=== PATIENT | male | born 1965 | race Caucasian/White ===

== ENCOUNTER → 2016-07-12 | Outpatient (CLI) | payer OTHER ==
[2016-07-12 08:31] LABS: CHLORIDE,CL 107 mmol/L (98-110); SODIUM,NA 139 mmol/L (136-146)
== END ==
LOC: MW.CHFP 07:43
PROVIDERS: ATTEND Student in an Organized Health Care Education/Training Program
DX: I10 Essential (primary) hypertension (principal); E11.9 Type 2 diabetes mellitus without complications; E78.00 Pure hypercholesterolemia, unspecified; E78.1 Pure hyperglyceridemia; E78.5 Hyperlipidemia, unspecified; R80.9 Proteinuria, unspecified
CPT/HCPCS: 36415; 80053; 80061; 82044; 83036

== ENCOUNTER → 2016-08-18 | Outpatient (CLI) | payer OTHER ==
[2016-08-18 08:56] LABS: CHLORIDE,CL 106 mmol/L (98-110); SODIUM,NA 140 mmol/L (136-146)
== END ==
LOC: MW.CHFP 08:19
PROVIDERS: ATTEND Student in an Organized Health Care Education/Training Program
DX: R74.0 Nonspecific elevation of levels of transaminase and lactic acid dehydrogenase [LDH] (principal)
CPT/HCPCS: 36415; 80053

== ENCOUNTER 2018-05-23 09:29 | Day surgery (SDC) | payer BC ==
[~2018-05-23 09:29] MED LIST: Lactated Ringers 1,000 ML IV SCH; Sodium Chloride 0.9% 10 ML Syringe FLUSH PRN; Sodium Chloride 0.9% 2.5 ML Syringe FLUSH PRN
--- NOTE | 2018-05-23 10:38 | PCM.PREANE ---
Preanesthetic Assessment - Anesthesia/Transfusion/Family Hx Anesthesia History: Prior Anesthesia Without Reaction Family History of Anesthesia Reaction: No Transfusion History: No Prior Transfusion(s) - Review of Systems General: No Symptoms Pulmonary: No Symptoms Cardiovascular: No Symptoms Gastrointestinal: No Symptoms Neurological: No Symptoms Other: Reports: None - Physical Assessment NPO Status Date: 05/22/18 Height: 6 ft Weight: 111.13 kg ASA Class: 2 Mental Status: Alert & Oriented x3 Airway Class: Mallampati = 2 Dentition: Reports: Normal Dentition ROM/Head Extension: Full Lungs: Clear to Auscultation, Normal Respiratory Effort Cardiovascular: Regular Rate, Regular Rhythm - Lab Values: Laboratory Last Values POC Glucose 82 mg/dL (60-110) 05/23/18 10:18 - Allergies Allergies/Adverse Reactions: Allergies Allergy/AdvReac Type Severity Reaction Status Date / Time amoxicillin Allergy Itching Verified 05/17/18 13:55 - Blood Blood Available: No - Anesthesia Plan Pre-Op Medication Ordered: None - Acknowledgements Anesthesia Type Planned: General Anesthesia, MAC Pt an Appropriate Candidate for the Planned Anesthesia: Yes Alternatives and Risks of Anesthesia Discussed w Pt/Guardian: Yes Pt/Guardian Understands and Agrees with Anesthesia Plan: Yes Additional Comments: PMH: anxiety, dm2, htn, gerd PLAN: mac/tiva PreAnesthesia Questionnaire HEENT History: Reports: Allergic Rhinitis Cardiovascular History: Reports: High Cholesterol, Hypertension Gastrointestinal History: Reports: GERD Genitourinary History: Reports: None Musculoskeletal History: Reports: Fracture Neurological History: Reports: None Psychiatric History: Reports: Anxiety Endocrine/Metabolic History: Reports: Diabetes, Type II, Obesity/BMI 30+ Hematologic History: Reports: None Immunologic History: Reports: None Oncologic (Cancer) History: Reports: None Dermatologic History: Reports: None - Past Surgical History Head Surgeries/Procedures: Reports: None HEENT Surgical History: Reports: Tonsillectomy Male Surgical History: Reports: Vasectomy Other Musculoskeletal Surgeries/Procedures:: surgical tx for fx rt wrist - SUBSTANCE USE Smoking Status *Q: Never Smoker - HOME MEDS Home Medications: Home Meds Aspirin [Adult Aspirin] 81 mg PO DAILY 05/17/18 [History] Canagliflozin/Metformin HCl [Invokamet 150-1,000 mg Tablet] 1 tab PO BID [History] Fenofibrate 160 mg PO DAILY 05/17/18 [History] Fluticasone Propionate [Flonase Allergy Relief] 2 spray NASBOTH BID 05/17/18 [ History] Lisinopril 10 mg PO DAILY 05/17/18 [History] Montelukast Sodium 10 mg PO DAILY 05/17/18 [History] Pantoprazole Sodium [Protonix] 20 mg PO DAILY 05/17/18 [History] Rosuvastatin Calcium 20 mg PO DAILY 05/17/18 [History] Ubidecarenone [Coq-10] 100 mg PO DAILY 05/17/18 [History] - CURRENT (IN HOUSE) MEDS Current Meds: Current Medications Lactated Ringer's (Ringers, Lactated) 1,000 mls @ 125 mls/hr IV ASDIRECTED JAYDA Sodium Chloride (Saline Flush) 10 ml FLUSH ASDIRECTED PRN PRN Reason: Keep Vein Open Sodium Chloride (Saline Flush) 2.5 ml FLUSH ASDIRECTED PRN PRN Reason: Keep Vein Open Sodium Chloride (Saline Flush) 10 ml FLUSH ASDIRECTED PRN PRN Reason: Keep Vein Open Sodium Chloride (Saline Flush) 2.5 ml FLUSH ASDIRECTED PRN PRN Reason: Keep Vein Open
[2018-05-23] MEDS ORDERED: Midazolam 1 MG/ML 2 ML SDV ONE (11:15)
[2018-05-23] MEDS ORDERED: fentaNYL 100 MCG/2 ML SDV ONE (11:15)
[2018-05-23] MEDS ORDERED: Propofol 200 MG/20 ML SDV ONE (11:15)
--- NOTE | 2018-05-23 11:54 | PCM.OPNOTE ---
- General Post-Op/Procedure Note Date of Surgery/Procedure: 05/23/18 Operative Procedure(s): Screening colonoscopy Findings: 1 polyp in the sigmoid colon Pre Op Diagnosis: Screening colonoscopy Post-Op Diagnosis: polyp in the sigmoid colon Anesthesia Technique: MAC Primary Surgeon: Michelle Patterson EBL in mLs: 0 Complications: None Condition: Good
--- NOTE | 2018-05-24 12:06 | OR ---
SURGEON: VANCE MCKINNEY MD DATE OF PROCEDURE: 05/23/2018 PREOPERATIVE DIAGNOSIS: Screening colonoscopy. POSTOPERATIVE DIAGNOSIS: Sigmoid colon polyp. PROCEDURE PERFORMED: Screening colonoscopy. ANESTHESIA: MAC. INSTRUMENT USED: Olympus colonoscope. EXTENT OF EXAM: To the cecum. PREPARATION: Fair prep. LIMITATIONS: None. INDICATION FOR EXAMINATION: The patient is a 52-year-old male who presents for screening colonoscopy. I explained the procedure, expected perioperative course, and risks including bleeding, infection, or damage to surrounding structures including perforation. The patient verbalized understanding and wishes to proceed. PROCEDURE IN DETAIL: The patient was brought to the endoscopy suite and placed in the left lateral decubitus position. A time-out was completed verifying the patient's name, age, date of , allergies, and procedure to be performed. Monitored anesthesia care was induced and continuous oxygen was provided via nasal cannula throughout the procedure. After adequate sedation was achieved, a digital rectal exam was performed. This exam was within normal limits. A well lubricated colonoscope was inserted in the rectum and advanced under direct visualization to the level of the cecum. The cecum was identified by both visual and anatomic landmarks. A photograph was taken of the cecal cap; however, I was unable to retroflex the scope within the cecum. The scope was then fully withdrawn while examining the color, texture, anatomy, and integrity of the mucosa from the cecum to the anal canal. The patient had a large amount of liquid stool in the colon and required a large amount of irrigation. Despite this, I was able to adequately assess the colonic mucosa. The patient was found to have one small polyp within the sigmoid colon and this was removed using a cold biopsy forceps. The scope was then brought into the rectum and retroflexed to allow visualization of the anal canal opening. This appeared normal and a photograph was taken. The scope was then straightened out and fully withdrawn. The cecum to anus time was 14 minutes. The patient tolerated the procedure well and was taken to PACU in stable condition. ENDOSCOPIC DIAGNOSIS: Sigmoid colon polyp. RECOMMENDATIONS: Follow up in clinic in 2 weeks. ALEJANDRO MOLINA /[id number]
== END 2018-05-23 12:35 | disposition home or self-care (01) ==
LOC: MW.SDS 09:29
PROVIDERS: ATTEND Surgery
DX: Z12.11 Encounter for screening for malignant neoplasm of colon (principal); K63.5 Polyp of colon; I10 Essential (primary) hypertension; E11.9 Type 2 diabetes mellitus without complications; E66.9 Obesity, unspecified; Z68.33 Body mass index [BMI] 33.0-33.9, adult; F41.9 Anxiety disorder, unspecified; E78.00 Pure hypercholesterolemia, unspecified; K21.9 Gastro-esophageal reflux disease without esophagitis; Z79.82 Long term (current) use of aspirin; Z79.84 Long term (current) use of oral hypoglycemic drugs; Z79.899 Other long term (current) drug therapy; Z80.0 Family history of malignant neoplasm of digestive organs; Z88.0 Allergy status to penicillin
CPT/HCPCS: 82962; 88305; J2250; J2704; J3010; J7120

== ENCOUNTER 2018-09-18 19:47 | Observation (INO) | payer BC, OTHER ==
[2018-09-18] MEDS ORDERED: Sodium Chloride 0.9% 10 ML Syringe FLUSH PRN (19:56)
[2018-09-18] MEDS ORDERED: Aspirin 81 MG Tab.Chew PO ONE (19:56)
[2018-09-18] MEDS ORDERED: Sodium Chloride 0.9% 2.5 ML Syringe FLUSH PRN (19:56)
[2018-09-18] MEDS ORDERED: Nitroglycerin 0.4 MG Tab.SL SL PRN (19:56)
--- NOTE | 2018-09-18 20:01 | EDM.PDOC ---
ED HPI GENERAL MEDICAL PROBLEM - General Chief Complaint: Chest Pain Stated Complaint: TIGHNESS IN CHEST AND PAIN IN BACK Time Seen by Provider: 09/18/18 19:48 - History of Present Illness INITIAL COMMENTS - FREE TEXT/NARRATIVE: HISTORY AND PHYSICAL: History of present illness: The patient is a 53-year-old male with a history of hypertension who presents with 2 weeks of episodic chest pressure and tightness that comes and goes but never wakes him from sleep. He says that there is nothing new or different this evening but he tried to call the clinic today and could not speak with his provider and he wants to get some answers about why this is occurring. He has a history of GERD and says that this feels differently. He has no nausea vomiting abdominal pain and leg pain or swelling and no shortness of breath and describes the discomfort as a tightness that is in his lower mid sternum and radiates to his back. He states compliance with his blood pressure medication and says he doesn't have high cholesterol and he has no significant family history and denies tobacco and drug use. He says he eats a poor diet mostly fast foods. He is having no issues with urination or bowel movements. He currently says that the discomfort is a 2/10 and he did not take anything for it and the highest it's ever been is a 3/10. It is not associated with activity. His last stress test was 12 years ago and was normal The patient tells me that he has been compliant with his medications for blood pressure but he has been checking at home and has been running on the high side. Review of systems: As per history of present illness and below otherwise all systems reviewed and negative. Past medical history: As per history of present illness and as reviewed below otherwise noncontributory. Surgical history: As per history of present illness and as reviewed below otherwise noncontributory. Social history: No reported history of drug or alcohol abuse. Family history: As per history of present illness and as reviewed below otherwise noncontributory. Physical exam: General: Well-developed well-nourished man who is nontoxic and vital signs were noted by me. He does have some telangiectasia on his cheeks HEENT: Atraumatic, normocephalic, , negative for conjunctival pallor or scleral icterus, mucous membranes moist, throat clear, neck supple, nontender, trachea midline. Lungs: Clear to auscultation, breath sounds equal bilaterally, chest nontender. No wheezing or stridor no work of breathing Heart: S1S2, regular, negative for clicks, rubs, or JVD. No overt murmurs are appreciated Abdomen: Soft, nondistended, nontender. Negative for masses or hepatosplenomegaly. Negative for costovertebral tenderness. Pelvis: Stable nontender. Genitourinary: Deferred. Rectal: Deferred. Extremities: Atraumatic, negative for cords or calf pain. Neurovascular unremarkable. No pedal edema or leg asymmetry Neuro: Awake, alert, oriented. Cranial nerves II through XII unremarkable. Cerebellum unremarkable. Motor and sensory unremarkable throughout. Exam nonfocal. Diagnostics: EKG chest x-ray CBC CMP INR troponin Therapeutics: IV O2 monitor aspirin and sublingual nitroglycerin Nitropaste After one sublingual nitroglycerin the patient's discomfort pressure is a 1/10 and he is declining further nitroglycerin sublingual. I will order a half an inch of nitro paste for him I discussed all testing results with the patient and he is agreeable for admission. He currently is only having that vague discomfort and pressure. 2052: I discussed this case with our hospitalist Dr. Aden who accepts for observation admission Impression: Chest pain Definitive disposition and diagnosis as appropriate pending reevaluation and review of above. Chest Pain Score (Numeric/FACES): 2 - Related Data Allergies Allergy/AdvReac Type Severity Reaction Status Date / Time amoxicillin Allergy Itching Verified 09/18/18 20:03 Home Meds: Home Meds Aspirin [Adult Aspirin] 81 mg PO DAILY 05/17/18 [History] Fenofibrate 160 mg PO DAILY 05/17/18 [History] Lisinopril 10 mg PO DAILY 05/17/18 [History] Montelukast Sodium 10 mg PO DAILY 05/17/18 [History] Pantoprazole Sodium [Protonix] 20 mg PO DAILY 05/17/18 [History] Rosuvastatin Calcium 20 mg PO DAILY 05/17/18 [History] Ubidecarenone [Coq-10] 100 mg PO DAILY 05/17/18 [History] Dapagliflozin/Metformin HCl [Xigduo Xr 5 mg-1,000 mg Tablet] 1 each PO BID 09/18 [History] Magnesium 400 mg PO DAILY 09/18/18 [History] Past Medical History HEENT History: Reports: Allergic Rhinitis Cardiovascular History: Reports: High Cholesterol, Hypertension Gastrointestinal History: Reports: GERD Genitourinary History: Reports: None Musculoskeletal History: Reports: Fracture Neurological History: Reports: None Psychiatric History: Reports: Anxiety Endocrine/Metabolic History: Reports: Diabetes, Type II, Obesity/BMI 30+ Hematologic History: Reports: None Immunologic History: Reports: None Oncologic (Cancer) History: Reports: None Dermatologic History: Reports: None - Past Surgical History Head Surgeries/Procedures: Reports: None HEENT Surgical History: Reports: Tonsillectomy Male Surgical History: Reports: Vasectomy Other Musculoskeletal Surgeries/Procedures:: surgical tx for fx rt wrist ED ROS GENERAL - Review of Systems Review Of Systems: ROS reveals no pertinent complaints other than HPI. ED EXAM, GENERAL - Physical Exam Exam: See Below (See dictation) Course - Vital Signs Last Recorded V/S: Last Vital Signs Temp 36.4 C 09/18/18 19:58 Pulse 89 09/18/18 19:58 Resp 12 09/18/18 19:58 BP 167/89 H 09/18/18 20:08 Pulse Ox 98 09/18/18 19:58 - Orders/Labs/Meds Orders: Active Orders 24 hr Category Date Time Status Patient Status [ADT] Stat ADT 09/18/18 20:55 Ordered Cardiac Monitoring [RC] . DIRECTED Care 09/18/18 19:56 Active EKG Documentation Completion [RC] STAT Care 09/18/18 19:56 Active Oxygen Therapy, ED [RC] ASDIRECTED Care 09/18/18 19:56 Active Pulse Oximetry [RC] ASDIRECTED Care 09/18/18 19:56 Active Nitroglycerin [Nitrostat] Med 09/18/18 19:56 Active 0.4 mg SL Q5M PRN Sodium Chloride 0.9% [Normal Saline] 1,000 ml Med 09/18/18 20:36 Active IV STAT Sodium Chloride 0.9% [Saline Flush] Med 09/18/18 19:56 Active 10 ml FLUSH ASDIRECTED PRN Sodium Chloride 0.9% [Saline Flush] Med 09/18/18 19:56 Active 2.5 ml FLUSH ASDIRECTED PRN Saline Lock Insert [OM.PC] Stat Oth 09/18/18 19:56 Ordered Medication Orders Sodium Chloride (Normal Saline) 1,000 mls @ 999 mls/hr IV STAT ONE Stop: 09/18/18 21:36 Nitroglycerin (Nitrostat) 0.4 mg SL Q5M PRN PRN Reason: Chest Pain Last Admin: 09/18/18 20:08 Dose: 0.4 mg Sodium Chloride (Saline Flush) 10 ml FLUSH ASDIRECTED PRN PRN Reason: Keep Vein Open Last Admin: 09/18/18 20:08 Dose: 10 ml Sodium Chloride (Saline Flush) 2.5 ml FLUSH ASDIRECTED PRN PRN Reason: Keep Vein Open Last Admin: 09/18/18 20:08 Dose: 2.5 ml Labs: Laboratory Tests 09/18/18 09/18/18 09/18/18 Range/Units 19:52 19:52 19:52 WBC 5.01 (4.0-11.0) K/uL RBC 5.16 (4.50-5.90) M/uL Hgb 16.0 (13.0-17.0) g/dL Hct 45.6 (38.0-50.0) % MCV 88.4 (80.0-98.0) fL MCH 31.0 (27.0-32.0) pg MCHC 35.1 (31.0-37.0) g/dL RDW Std Deviation 41.0 (28.0-62.0) fl RDW Coeff of [place] 13 (11.0-15.0) % Plt Count 170 (150-400) K/uL MPV 9.80 (7.40-12.00) fL Neut % (Auto) 41.5 L (48.0-80.0) % Lymph % (Auto) 46.9 H (16.0-40.0) % [place] % (Auto) 8.6 (0.0-15.0) % Eos % (Auto) 2.4 (0.0-7.0) % Baso % (Auto) 0.6 (0.0-1.5) % Neut # (Auto) 2.1 (1.4-5.7) K/uL Lymph # (Auto) 2.4 (0.6-2.4) K/uL [place] # (Auto) 0.4 (0.0-0.8) K/uL Eos # (Auto) 0.1 (0.0-0.7) K/uL Baso # (Auto) 0.0 (0.0-0.1) K/uL Nucleated RBC % 0.0 /100WBC Nucleated RBCs # 0 K/uL INR 0.97 Sodium 140 (136-148) mmol/L Potassium 3.4 L (3.5-5.1) mmol/L Chloride 102 (98-107) mmol/L Carbon Dioxide 24.8 (21.0-32.0) mmol/L BUN 21 H (7.0-18.0) mg/dL Creatinine 1.0 (0.8-1.3) mg/dL Est Cr Clr Drug Dosing 93.77 mL/min Estimated GFR (MDRD) > 60.0 ml/min Glucose 121 H (74-106) mg/dL Calcium 9.4 (8.5-10.1) mg/dL Total Bilirubin 0.8 (0.2-1.0) mg/dL AST 45 H (15-37) IU/L ALT 68 H (14-63) IU/L Alkaline Phosphatase 42 L (46-116) U/L Troponin I < 0.050 (0.000-0.056) ng/mL Total Protein 7.6 (6.4-8.2) g/dL Albumin 4.8 (3.4-5.0) g/dL Globulin 2.8 (2.6-4.0) g/dL Albumin/Globulin Ratio 1.7 H (0.9-1.6) Meds: Medications Generic Name Dose Route Start Last Admin Trade Name Freq PRN Reason Stop Dose Admin Sodium Chloride 1,000 mls @ 999 mls/hr 09/18/18 20:36 Normal Saline IV 09/18/18 21:36 STAT ONE Nitroglycerin 0.4 mg 09/18/18 19:56 09/18/18 20:08 Nitrostat SL 0.4 mg Q5M PRN Administration Chest Pain Sodium Chloride 10 ml 09/18/18 19:56 09/18/18 20:08 Saline Flush FLUSH 10 ml ASDIRECTED PRN Administration Keep Vein Open Sodium Chloride 2.5 ml 09/18/18 19:56 09/18/18 20:08 Saline Flush FLUSH 2.5 ml ASDIRECTED PRN Administration Keep Vein Open Discontinued Medications Generic Name Dose Route Start Last Admin Trade Name Birdq PRN Reason Stop Dose Admin Aspirin 324 mg 09/18/18 19:56 09/18/18 20:07 Aspirin PO 09/18/18 19:57 324 mg ONETIME ONE Administration Nitroglycerin 0.5 gm 09/18/18 20:17 09/18/18 20:46 Nitro-Bid 2% TOP 09/18/18 20:18 0.5 gm ONETIME ONE Administration Departure - Departure Time of Disposition: 20:57 Disposition: Refer to Observation Condition: Good Clinical Impression: Chest pain Qualifiers: Chest pain type: unspecified Qualified Code(s): R07.9 - Chest pain, unspecified - Discharge Information Referrals: Katja Sánchez MD [Primary Care Provider] - Forms: ED Department Discharge - My Orders Last 24 Hours: My Active Orders 09/18/18 19:56 Cardiac Monitoring [RC] . DIRECTED EKG Documentation Completion [RC] STAT Oxygen Therapy, ED [RC] ASDIRECTED Pulse Oximetry [RC] ASDIRECTED Nitroglycerin [Nitrostat] 0.4 mg SL Q5M PRN Sodium Chloride 0.9% [Saline Flush] 10 ml FLUSH ASDIRECTED PRN Sodium Chloride 0.9% [Saline Flush] 2.5 ml FLUSH ASDIRECTED PRN Saline Lock Insert [OM.PC] Stat 09/18/18 20:36 Sodium Chloride 0.9% [Normal Saline] 1,000 ml IV STAT 09/18/18 20:55 Patient Status [ADT] Stat - Assessment/Plan Last 24 Hours: My Active Orders 09/18/18 19:56 Cardiac Monitoring [RC] . DIRECTED EKG Documentation Completion [RC] STAT Oxygen Therapy, ED [RC] ASDIRECTED Pulse Oximetry [RC] ASDIRECTED Nitroglycerin [Nitrostat] 0.4 mg SL Q5M PRN Sodium Chloride 0.9% [Saline Flush] 10 ml FLUSH ASDIRECTED PRN Sodium Chloride 0.9% [Saline Flush] 2.5 ml FLUSH ASDIRECTED PRN Saline Lock Insert [OM.PC] Stat 09/18/18 20:36 Sodium Chloride 0.9% [Normal Saline] 1,000 ml IV STAT 09/18/18 20:55 Patient Status [ADT] Stat
[2018-09-18] MEDS ORDERED: Nitroglycerin 2% Oint 1 GM UD Packet TOP ONE (20:17)
[2018-09-18 20:26] LABS: CHLORIDE,CL 102 mmol/L (98-107); SODIUM,NA 140 mmol/L (136-148)
[2018-09-18] MEDS ORDERED: Sodium Chloride 0.9% 1,000 ML IV ONE (20:36)
--- NOTE | 2018-09-18 20:47 | CR ---
HISTORY: Chest pain. COMPARISON: 08/29/2012 FINDINGS: A portable erect AP view of the chest was obtained at 2050 hours. The lungs remain clear. No focal or diffuse infiltrates are present. The heart remains normal in size. The mediastinum is normal in appearance. The osseous structures are normal in appearance for the patient`s age. IMPRESSION: Normal portable chest single view. Dictated by Denton Jordan MD @ Sep 18 2018 8:40PM Signed by Dr. Denton Jordan @ Sep 18 2018 8:45PM
[2018-09-18] MEDS ORDERED: Temazepam 15 MG Cap PO PRN (23:08)
[2018-09-18] MEDS ORDERED: Acetaminophen 325 MG Tab PO PRN (23:08)
[2018-09-18] MEDS ORDERED: Ondansetron 4 MG Tab.DIS PO PRN (23:08)
[2018-09-18] MEDS ORDERED: Docusate Sodium 100 MG Cap PO PRN (23:08)
[2018-09-18] MEDS ORDERED: oxyCODONE 5 MG Tab PO PRN (23:08)
[2018-09-18] MEDS ORDERED: Enoxaparin 30 MG/0.3 ML Syringe SUBCUT SCH (23:15)
[2018-09-19] MEDS: Insulin Aspart 100 Units/ML 3 ML Pen SUBCUT SCH ×2 (06:51→14:01)
--- NOTE | 2018-09-19 06:56 | PCM.HP ---
H&P History of Present Illness - General Date of Service: 09/19/18 Admit Problem/Dx: Admission Diagnosis/Problem Admission Diagnosis/Problem Chest pain Source of Information: Patient History Limitations: Reports: No Limitations - History of Present Illness Initial Comments - Free Text/Narative: The patient is a 53-year-old gentleman who had presented to the emergency department yesterday with a complaint of chest pain. Patient says that for the past 2 weeks he has had pain primarily in the center of his chest that he predominantly describes as tightness. This is been going on for 2 weeks and will come and go. It does not radiate. Patient does have diabetes as well as hypertension and these have been fairly well controlled. The patient has denied any dizziness or lightheadedness. No nausea or vomiting. No other associated symptoms. He has denied any diaphoresis. The patient has been in his usual state of health. The patient has no family history of heart disease. Onset of Symptoms: Reports: Gradual Duration of Symptoms: Reports: Week(s):, Intermittent Location: Reports: Chest Quality: Reports: Other (Tightness) Severity: Mild Improves with: Reports: None Worsens with: Reports: None Associated Symptoms: Reports: No Other Symptoms Chest Pain Score (Numeric/FACES): 1 - Related Data Allergies/Adverse Reactions: Allergies Allergy/AdvReac Type Severity Reaction Status Date / Time amoxicillin Allergy Itching Verified 09/18/18 20:03 Home Medications: Home Meds Aspirin [Adult Aspirin] 81 mg PO DAILY 05/17/18 [History] Fenofibrate 160 mg PO DAILY 05/17/18 [History] Lisinopril 10 mg PO DAILY 05/17/18 [History] Montelukast Sodium 10 mg PO DAILY 05/17/18 [History] Pantoprazole Sodium [Protonix] 20 mg PO DAILY 05/17/18 [History] Rosuvastatin Calcium 20 mg PO DAILY 05/17/18 [History] Ubidecarenone [Coq-10] 100 mg PO DAILY 05/17/18 [History] Dapagliflozin/Metformin HCl [Xigduo Xr 5 mg-1,000 mg Tablet] 1 each PO BID 09/18 [History] Magnesium 400 mg PO DAILY 09/18/18 [History] Past Medical History HEENT History: Reports: Allergic Rhinitis Cardiovascular History: Reports: High Cholesterol, Hypertension Respiratory History: Reports: None Gastrointestinal History: Reports: GERD Genitourinary History: Reports: None Musculoskeletal History: Reports: Fracture Neurological History: Reports: None Psychiatric History: Reports: Anxiety Endocrine/Metabolic History: Reports: Diabetes, Type II, Obesity/BMI 30+ Hematologic History: Reports: None Immunologic History: Reports: None Oncologic (Cancer) History: Reports: None Dermatologic History: Reports: None - Infectious Disease History Infectious Disease History: Reports: Chicken Pox - Past Surgical History Head Surgeries/Procedures: Reports: None HEENT Surgical History: Reports: Tonsillectomy Male Surgical History: Reports: Vasectomy Other Musculoskeletal Surgeries/Procedures:: surgical tx for fx rt wrist Social & Family History - Family History Family Medical History: Noncontributory - Tobacco Use Smoking Status *Q: Never Smoker Second Hand Smoke Exposure: No - Caffeine Use Caffeine Use: Reports: Coffee - Alcohol Use Days Per Week of Alcohol Use: 3 Number of Drinks Per Day: 1 Total Drinks Per Week: 3 Date of Last Drink: 09/17/18 - Recreational Drug Use Recreational Drug Use: Yes Drug Use in Last 12 Months: No Recreational Drug Type: Reports: Marijuana/Hashish - Living Situation & Occupation Living situation: Reports: Occupation: Employed H&P Review of Systems - Review of Systems: Review Of Systems: See Below General: Reports: No Symptoms HEENT: Reports: No Symptoms Pulmonary: Reports: No Symptoms Cardiovascular: Reports: Chest Pain Gastrointestinal: Reports: No Symptoms Genitourinary: Reports: No Symptoms Musculoskeletal: Reports: No Symptoms Skin: Reports: No Symptoms Psychiatric: Reports: No Symptoms Neurological: Reports: No Symptoms Hematologic/Lymphatic: Reports: No Symptoms Immunologic: Reports: No Symptoms Exam - Exam Exam: See Below - Vital Signs Vital Signs: Last Vital Signs Temp 36.2 C 09/19/18 04:17 Pulse 65 09/19/18 04:17 Resp 18 09/19/18 04:17 BP 117/80 09/19/18 04:17 Pulse Ox 97 09/19/18 04:17 Weight: 112.173 kg - Exam Quality Assessment: No: Supplemental Oxygen General: Alert, Oriented, Cooperative HEENT: Conjunctiva Clear, EACs Clear, EOMI, Mucosa Moist & [place], Pupils Equal, PERRLA Neck: Supple, Trachea Midline Lungs: Clear to Auscultation, Normal Respiratory Effort Cardiovascular: Regular Rate, Regular Rhythm GI/Abdominal Exam: Normal Bowel Sounds, Soft, Non-Tender, No Distention Back Exam: Normal Inspection, Full Range of Motion Extremities: Normal Inspection, Normal Range of Motion, No Pedal Edema Skin: Warm, Dry, Intact Neurological: Cranial Nerves Intact Neuro Extensive - Mental Status: Alert, Oriented x3 Neuro Extensive - Motor, Sensory, Reflexes: CN II-XII Intact Psychiatric: Alert, Normal Affect, Normal Mood - Patient Data Lab Results Last 24 hrs: Laboratory Results - last 24 hr 09/18/18 09/18/18 09/18/18 Range/Units 19:52 19:52 19:52 WBC 5.01 (4.0-11.0) K/uL RBC 5.16 (4.50-5.90) M/uL Hgb 16.0 (13.0-17.0) g/dL Hct 45.6 (38.0-50.0) % MCV 88.4 (80.0-98.0) fL MCH 31.0 (27.0-32.0) pg MCHC 35.1 (31.0-37.0) g/dL RDW Std Deviation 41.0 (28.0-62.0) fl RDW Coeff of [place] 13 (11.0-15.0) % Plt Count 170 (150-400) K/uL MPV 9.80 (7.40-12.00) fL Neut % (Auto) 41.5 L (48.0-80.0) % Lymph % (Auto) 46.9 H (16.0-40.0) % [place] % (Auto) 8.6 (0.0-15.0) % Eos % (Auto) 2.4 (0.0-7.0) % Baso % (Auto) 0.6 (0.0-1.5) % Neut # (Auto) 2.1 (1.4-5.7) K/uL Lymph # (Auto) 2.4 (0.6-2.4) K/uL [place] # (Auto) 0.4 (0.0-0.8) K/uL Eos # (Auto) 0.1 (0.0-0.7) K/uL Baso # (Auto) 0.0 (0.0-0.1) K/uL Nucleated RBC % 0.0 /100WBC Nucleated RBCs # 0 K/uL INR 0.97 Sodium 140 (136-148) mmol/L Potassium 3.4 L (3.5-5.1) mmol/L Chloride 102 (98-107) mmol/L Carbon Dioxide 24.8 (21.0-32.0) mmol/L BUN 21 H (7.0-18.0) mg/dL Creatinine 1.0 (0.8-1.3) mg/dL Est Cr Clr Drug Dosing 93.77 mL/min Estimated GFR (MDRD) > 60.0 ml/min Glucose 121 H (74-106) mg/dL POC Glucose (60-110) mg/dL Calcium 9.4 (8.5-10.1) mg/dL Total Bilirubin 0.8 (0.2-1.0) mg/dL AST 45 H (15-37) IU/L ALT 68 H (14-63) IU/L Alkaline Phosphatase 42 L (46-116) U/L Troponin I < 0.050 (0.000-0.056) ng/mL Total Protein 7.6 (6.4-8.2) g/dL Albumin 4.8 (3.4-5.0) g/dL Globulin 2.8 (2.6-4.0) g/dL Albumin/Globulin Ratio 1.7 H (0.9-1.6) 09/19/18 09/19/18 09/19/18 Range/Units 00:09 02:00 05:40 WBC 3.88 L (4.0-11.0) K/uL RBC 4.62 (4.50-5.90) M/uL Hgb 14.2 (13.0-17.0) g/dL Hct 40.9 (38.0-50.0) % MCV 88.5 (80.0-98.0) fL MCH 30.7 (27.0-32.0) pg MCHC 34.7 (31.0-37.0) g/dL RDW Std Deviation 40.3 (28.0-62.0) fl RDW Coeff of [place]elm[place] 13 (11.0-15.0) % Plt Count 157 (150-400) K/uL MPV 10.20 (7.40-12.00) fL Neut % (Auto) 46.4 L (48.0-80.0) % Lymph % (Auto) 40.7 H (16.0-40.0) % [place] % (Auto) 9.0 (0.0-15.0) % Eos % (Auto) 3.4 (0.0-7.0) % Baso % (Auto) 0.5 (0.0-1.5) % Neut # (Auto) 1.8 (1.4-5.7) K/uL Lymph # (Auto) 1.6 (0.6-2.4) K/uL [place] # (Auto) 0.4 (0.0-0.8) K/uL Eos # (Auto) 0.1 (0.0-0.7) K/uL Baso # (Auto) 0.0 (0.0-0.1) K/uL Nucleated RBC % 0.0 /100WBC Nucleated RBCs # 0 K/uL INR Sodium (136-148) mmol/L Potassium (3.5-5.1) mmol/L Chloride (98-107) mmol/L Carbon Dioxide (21.0-32.0) mmol/L BUN (7.0-18.0) mg/dL Creatinine (0.8-1.3) mg/dL Est Cr Clr Drug Dosing mL/min Estimated GFR (MDRD) ml/min Glucose (74-106) mg/dL POC Glucose 164 H (60-110) mg/dL Calcium (8.5-10.1) mg/dL Total Bilirubin (0.2-1.0) mg/dL AST (15-37) IU/L ALT (14-63) IU/L Alkaline Phosphatase (46-116) U/L Troponin I < 0.050 (0.000-0.056) ng/mL Total Protein (6.4-8.2) g/dL Albumin (3.4-5.0) g/dL Globulin (2.6-4.0) g/dL Albumin/Globulin Ratio (0.9-1.6) 09/19/18 Range/Units 06:28 WBC (4.0-11.0) K/uL RBC (4.50-5.90) M/uL Hgb (13.0-17.0) g/dL Hct (38.0-50.0) % MCV (80.0-98.0) fL MCH (27.0-32.0) pg MCHC (31.0-37.0) g/dL RDW Std Deviation (28.0-62.0) fl RDW Coeff of [place] (11.0-15.0) % Plt Count (150-400) K/uL MPV (7.40-12.00) fL Neut % (Auto) (48.0-80.0) % Lymph % (Auto) (16.0-40.0) % [place] % (Auto) (0.0-15.0) % Eos % (Auto) (0.0-7.0) % Baso % (Auto) (0.0-1.5) % Neut # (Auto) (1.4-5.7) K/uL Lymph # (Auto) (0.6-2.4) K/uL [place] # (Auto) (0.0-0.8) K/uL Eos # (Auto) (0.0-0.7) K/uL Baso # (Auto) (0.0-0.1) K/uL Nucleated RBC % /100WBC Nucleated RBCs # K/uL INR Sodium (136-148) mmol/L Potassium (3.5-5.1) mmol/L Chloride (98-107) mmol/L Carbon Dioxide (21.0-32.0) mmol/L BUN (7.0-18.0) mg/dL Creatinine (0.8-1.3) mg/dL Est Cr Clr Drug Dosing mL/min Estimated GFR (MDRD) ml/min Glucose (74-106) mg/dL POC Glucose 107 (60-110) mg/dL Calcium (8.5-10.1) mg/dL Total Bilirubin (0.2-1.0) mg/dL AST (15-37) IU/L ALT (14-63) IU/L Alkaline Phosphatase (46-116) U/L Troponin I (0.000-0.056) ng/mL Total Protein (6.4-8.2) g/dL Albumin (3.4-5.0) g/dL Globulin (2.6-4.0) g/dL Albumin/Globulin Ratio (0.9-1.6) Result Diagrams: 09/19/18 05:40 09/19/18 07:55 - Problem List (1) Chest pain SNOMED Code(s): 15657788 ICD Code: R07.9 - CHEST PAIN, UNSPECIFIED Status: Chronic Priority: Medium Current Visit: Yes Qualifiers: Chest pain type: unspecified Qualified Code(s): R07.9 - Chest pain, unspecified (2) Diabetes mellitus type II, controlled, with no complications SNOMED Code(s): 981654533, 932877196 ICD Code: E11.9 - TYPE 2 DIABETES MELLITUS WITHOUT COMPLICATIONS Status: Chronic Priority: High Current Visit: Yes Qualifiers: Diabetes mellitus computer terminal operator insulin use: without senior care use Qualified Code(s): E11.9 - Type 2 diabetes mellitus without complications (3) Hypertension SNOMED Code(s): 97693716 ICD Code: I10 - ESSENTIAL (PRIMARY) HYPERTENSION Status: Chronic Priority : High Current Visit: Yes Qualifiers: Hypertension type: essential hypertension Qualified Code(s): I10 - Essential (primary) hypertension Problem List Initiated/Reviewed/Updated: Yes Orders Last 24hrs: Active Orders 24 hr Category Date Time Status Patient Status [ADT] Stat ADT 09/18/18 20:55 Active Blood Glucose Check, Bedside [RC] WITHMEALSANDBED Care 09/18/18 23:08 Active Cardiac Monitoring [RC] . DIRECTED Care 09/18/18 19:56 Active Cardiac Monitoring [RC] CONTINUOUS Care 09/18/18 23:08 Active Diabetes Education [RC] Click to Edit Care 09/18/18 23:10 Active EKG Documentation Completion [RC] AM Care 09/19/18 08:00 Active EKG Documentation Completion [RC] STAT Care 09/18/18 19:56 Active Oxygen Therapy [RC] PRN Care 09/18/18 23:08 Active Oxygen Therapy, ED [RC] ASDIRECTED Care 09/18/18 19:56 Active Pulse Oximetry [RC] ASDIRECTED Care 09/18/18 19:56 Active Telemetry Monitoring [Cardiac Monitoring] [RC] . Care 09/18/18 23:03 Active DIRECTED Up ad Betsy [RC] ASDIRECTED Care 09/18/18 23:08 Active VTE/DVT Education [RC] PER UNIT ROUTINE Care 09/18/18 23:08 Active Vital Signs [RC] Q4H Care 09/18/18 23:08 Active Consistent Carbohydrate Diet [DIET] Diet 09/19/18 Breakfast Active COMPREHENSIVE METABOLIC PN,CMP [CHEM] AM Lab 09/19/18 05:08 Ordered TROPONIN I [CHEM] Q6H Lab 09/19/18 05:08 Ordered Acetaminophen [Tylenol] Med 09/18/18 23:08 Active 650 mg PO Q4H PRN Dapagliflozin/Metformin HCl [Xigduo Xr 5 mg-1,000 mg Med 09/19/18 09:00 Pending Tablet] 1 each PO BID Docusate Sodium [Colace] Med 09/18/18 23:08 Active 100 mg PO BID PRN Enoxaparin [Lovenox] Med 09/18/18 23:15 Active 30 mg SUBCUT Q24H Fenofibrate Med 09/19/18 09:00 Pending 160 mg PO DAILY Insulin Aspart [NovoLOG] Med 09/19/18 07:30 Active See Protocol SUBCUT TIDAC Lisinopril [Prinivil] Med 09/19/18 09:00 Active 10 mg PO DAILY Magnesium Oxide Med 09/19/18 09:00 Active 400 mg PO DAILY Nitroglycerin [Nitrostat] Med 09/18/18 19:56 Active 0.4 mg SL Q5M PRN Ondansetron [Zofran ODT] Med 09/18/18 23:08 Active 4 mg PO Q6H PRN Pantoprazole Sodium [Protonix] Med 09/19/18 09:00 Pending 20 mg PO DAILY Rosuvastatin [Crestor] Med 09/19/18 09:00 Active 20 mg PO DAILY Sodium Chloride 0.9% [Saline Flush] Med 09/18/18 19:56 Active 10 ml FLUSH ASDIRECTED PRN Sodium Chloride 0.9% [Saline Flush] Med 09/18/18 19:56 Active 2.5 ml FLUSH ASDIRECTED PRN Temazepam [Restoril] Med 09/18/18 23:08 Active 15 mg PO BEDTIME PRN oxyCODONE Med 09/18/18 23:08 Active 5 mg PO Q4H PRN Glucose Management Sub Q Reflex [OM.PC] Click To Edit Oth 09/18/18 23:08 Ordered Saline Lock Insert [OM.PC] Stat Oth 09/18/18 19:56 Ordered Resuscitation Status Routine Resus Stat 09/18/18 23:08 Ordered Medication Orders Acetaminophen (Tylenol) 650 mg PO Q4H PRN PRN Reason: Pain (Mild 1-3)/fever Docusate Sodium (Colace) 100 mg PO BID PRN PRN Reason: Constipation Enoxaparin Sodium (Lovenox) 30 mg SUBCUT Q24H [facility] Last Admin: 09/19/18 00:11 Dose: 30 mg Insulin Aspart (Novolog) 0 unit SUBCUT TIDAC [facility]; Protocol Last Admin: 09/19/18 06:51 Dose: Not Given Lisinopril (Prinivil) 10 mg PO DAILY [facility] Magnesium Oxide (Magnesium Oxide) 400 mg PO DAILY [facility] Nitroglycerin (Nitrostat) 0.4 mg SL Q5M PRN PRN Reason: Chest Pain Last Admin: 09/18/18 20:08 Dose: 0.4 mg Non-Formulary Medication (Dapagliflozin/Metformin Hcl [Xigduo Xr 5 Mg-1,000 Mg Tablet]) 1 each PO BID [facility] Non-Formulary Medication (Fenofibrate) 160 mg PO DAILY [facility] Non-Formulary Medication (Pantoprazole Sodium [Protonix]) 20 mg PO DAILY [facility] Ondansetron HCl (Zofran Odt) 4 mg PO Q6H PRN PRN Reason: nausea, able to take PO Oxycodone HCl (Oxycodone) 5 mg PO Q4H PRN PRN Reason: Pain (moderate 4-6) Rosuvastatin Calcium (Crestor) 20 mg PO DAILY [facility] Sodium Chloride (Saline Flush) 10 ml FLUSH ASDIRECTED PRN PRN Reason: Keep Vein Open Last Admin: 09/18/18 20:08 Dose: 10 ml Sodium Chloride (Saline Flush) 2.5 ml FLUSH ASDIRECTED PRN PRN Reason: Keep Vein Open Last Admin: 09/18/18 20:08 Dose: 2.5 ml Temazepam (Restoril) 15 mg PO BEDTIME PRN PRN Reason: Sleep Assessment/Plan Comment:: The patient is a 53-year-old gentleman who had been admitted secondary to atypical chest pain that he described as "chest tightness". The patient has had 3 sets of troponins which are undetectable and an EKG which is unchanged. The patient says that this is been going on for at least 2 weeks. I have recommended that the patient follow up with cardiology secondary to his comorbidity with diabetes mellitus and hypertension. The patient has been otherwise stable. He is recommended to continue with his diet as tolerated. The patient is also to have activity as tolerated. He has been hemodynamically stable and he is discharged from hospitalization with the recommendations listed above. This history and physical will also function as a discharge summary.
[2018-09-19 08:49] LABS: CHLORIDE,CL 105 mmol/L (98-107); SODIUM,NA 140 mmol/L (136-148)
[2018-09-19] MEDS ORDERED: Magnesium Oxide 400 MG Tab PO SCH (09:00)
[2018-09-19] MEDS ORDERED: DAPAGLIFLOZIN PO SCH (09:00)
[2018-09-19] MEDS ORDERED: Lisinopril 10 MG Tab PO SCH (09:00)
[2018-09-19] MEDS ORDERED: Rosuvastatin 10 MG Tab PO SCH (09:00)
[2018-09-19] MEDS ORDERED: Pantoprazole 40 MG Tab.CR PO SCH (09:00)
[2018-09-19] MEDS ORDERED: METFORMIN HCL PO SCH (09:00)
== END 2018-09-19 12:55 | disposition home or self-care (01) ==
LOC: MW.ED 19:47 → MW.MS 20:55
PROVIDERS: ADMIT Internal Medicine; ATTEND Internal Medicine
DX: R07.89 Other chest pain (principal); I10 Essential (primary) hypertension; E11.9 Type 2 diabetes mellitus without complications; E78.00 Pure hypercholesterolemia, unspecified; K21.9 Gastro-esophageal reflux disease without esophagitis; Z88.0 Allergy status to penicillin; Z79.82 Long term (current) use of aspirin; Z79.84 Long term (current) use of oral hypoglycemic drugs; Z79.899 Other long term (current) drug therapy
CPT/HCPCS: 36415; 71045; 80053; 82962; 84484; 85025; 85610; 93005; 96360; 99285; A9270; J1650; J7040; 99284